=== PATIENT | male | born 1955 | race Caucasian/White ===

== ENCOUNTER → 2022-11-08 | Outpatient (CLI) | payer OTHER | LOC: M WUC 10:43 | PROVIDERS: ATTEND Internal Medicine | DX: R91.8 Other nonspecific abnormal finding of lung field (principal) ==

== ENCOUNTER → 2023-03-07 | Outpatient (REF) | payer OTHER | LOC: M LAB REF 17:38 | PROVIDERS: ATTEND Internal Medicine | DX: N42.9 Disorder of prostate, unspecified (principal) ==

== ENCOUNTER 2023-08-11 10:22 | Emergency (ER) | payer OTHER ==
[~2023-08-11] VITALS: Ht 172.7 cm; Wt 76.6 kg
[2023-08-11 11:03] LABS: BASO % 0.4 % (0.0-1.0); EOS # 0.1 10^3/uL (0.0-0.5); EOS % 0.9 % (0.0-3.0); HEMATOCRIT 46.5 % (42.0-52.0); HEMOGLOBIN 15.6 g/dl (13.5-17.5); LYMPH # 0.9 10^3/uL (1.5-5.0); LYMPH % 11.2 % (24.0-44.0); MEAN CORPUSCULAR HEMOGLOBIN 30.6 pg (27.0-33.0); MEAN CORPUSCULAR HGB CONC 33.5 g/dl (32.0-36.5); MEAN CORPUSCULAR VOLUME 91.2 fl (80.0-96.0); MONO # 0.7 10^3/uL (0.0-0.8); MONO % 8.6 % (2.0-8.0); NEUTROPHILS # 6.3 10^3/uL (1.5-8.5); NEUTROPHILS % 78.5 % (36.0-66.0); PLATELET COUNT, AUTOMATED 208 10^3/uL (150-450)
[2023-08-11 11:15] LABS: INR 0.98; PARTIAL THROMBOPLASTIN TIME 25.5 SECONDS (24.8-34.2); PROTHROMBIN TIME 12.7 SECONDS (12.5-14.5)
[2023-08-11 11:36] LABS: LIPASE 54 U/L (12-53)
[2023-08-11 11:38] LABS: ALBUMIN 3.9 G/DL (3.2-5.2); ALKALINE PHOSPHATASE 56 U/L (46-116); ALT/SGPT 28 U/L (7.0-40); AST/SGOT 45 U/L (<34); BILIRUBIN,DIRECT 0.2 MG/DL (<0.4); BILIRUBIN,TOTAL 1.2 MG/DL (0.3-1.2); BLOOD UREA NITROGEN 26 MG/DL (9-23); CALCIUM LEVEL 9.5 MG/DL (8.3-10.6); CARBON DIOXIDE LEVEL 29 MMOL/L (20-31); CHLORIDE LEVEL 101 MMOL/L (98-107); CK-MB VALUE MASS 15.1 NG/ML (<3.6); CREATININE FOR GFR 1.27 MG/DL (0.70-1.30); GLOMERULAR FILTRATION RATE > 60.0 (>49); GLUCOSE, FASTING 119 MG/DL (74-106); POTASSIUM SERUM 4.3 MMOL/L (3.5-5.1); SODIUM LEVEL 136 MMOL/L (136-145); TOTAL PROTEIN 6.7 G/DL (5.7-8.2)
[2023-08-11 11:39] LABS: THYROID STIMULATING HORMONE 1.526 uIU/ML (0.55-4.78)
[2023-08-11 11:40] LABS: FREE T4 1.03 NG/DL (0.89-1.76)
[2023-08-11] MEDS ORDERED: IBUP200C25 PO (11:41)
[2023-08-11 11:44] LABS: CPK CREATINE PHOSPHOKINASE 318 U/L (46-171); MB/CK RELATIVE INDEX 4.74 (< OR =4)
[2023-08-11] MEDS ORDERED: HOME MED LIST COMPLETE! XX SCH (11:45)
[2023-08-11] MEDS ORDERED: ISOVUE-370 76% 100ML VIAL As Ordered ONE (11:55)
[2023-08-11 12:39] LABS: CK-MB VALUE MASS 15.2 NG/ML (<3.6)
[2023-08-11 12:46] LABS: MB/CK RELATIVE INDEX 4.77 (< OR =4)
[2023-08-11] MEDS ORDERED: HEPARIN DRIP 25,000 UNITS in IV 1 EA IV SCH (12:55)
[2023-08-11] MEDS ORDERED: HEPARIN SOD (PORCINE) 5000UNITS/ML 1ML VIAL/SYRINGE IV PRN ×2 (12:55→13:30)
[2023-08-11] MEDS: HEPARIN SOD (PORCINE) 5000UNITS/ML 1ML VIAL/SYRINGE IV ONE ×2 (13:20→13:30)
[2023-08-11] MEDS: ASPIRIN 81MG CHEW TABLET PO ONE (13:21)
[2023-08-11] MEDS: NS 500 ML IV ONE (13:27)
[2023-08-11] MEDS: HEPARIN DRIP 25,000 UNITS in IV 1 EA IV SCH (13:35)
[2023-08-11 13:42] VITALS: BP 132/93; TEMP 97.3; O2SAT 100
== END 2023-08-11 13:42 | disposition short-term general hospital (02) ==
LOC: M ED 11:20
DX: I21.4 Non-ST elevation (NSTEMI) myocardial infarction (principal); E78.5 Hyperlipidemia, unspecified; Z82.49 Family history of ischemic heart disease and other diseases of the circulatory system; I71.21 Aneurysm of the ascending aorta, without rupture; Z88.0 Allergy status to penicillin
CPT/HCPCS: 71045; 71275; 80048; 80076; 82550; 82553; 83690; 83880; 84439; 84443; 84484; 85025; 85610; 85730; 93005; 93041; 94760; 96374; 99285; Q9967

== ENCOUNTER → 2023-09-08 | Outpatient (REF) | payer OTHER ==
[~2023-09-08] MED LIST: IBUP200C25 PO
== END ==
LOC: M LABWUC 12:51
PROVIDERS: ATTEND Nurse Practitioner Adult Health
DX: N42.9 Disorder of prostate, unspecified (principal)

== ENCOUNTER → 2023-10-13 | Outpatient (CLI) | payer OTHER ==
[2023-10-13 14:39] LABS: ALKALINE PHOSPHATASE 52 U/L (46-116); ALT/SGPT 33 U/L (7.0-40); AST/SGOT 27 U/L (<34); BLOOD UREA NITROGEN 22 MG/DL (9-23); CALCIUM LEVEL 9.5 MG/DL (8.3-10.6); CARBON DIOXIDE LEVEL 30 MMOL/L (20-31); CHLORIDE LEVEL 107 MMOL/L (98-107); CHOLESTEROL LEVEL 156 MG/DL (<200); CREATININE FOR GFR 1.21 MG/DL (0.70-1.30); GLOMERULAR FILTRATION RATE > 60.0 (>49); GLUCOSE, FASTING 99 MG/DL (74-106); LDL CHOLESTEROL 86.4 MG/DL (<100); POTASSIUM SERUM 4.9 MMOL/L (3.5-5.1); SODIUM LEVEL 141 MMOL/L (136-145); TOTAL PROTEIN 6.4 G/DL (5.7-8.2); TRIGLYCERIDES LEVEL 88 MG/DL (<150)
== END ==
LOC: M WUC 09:23
PROVIDERS: ATTEND Internal Medicine Cardiovascular Disease
DX: E78.5 Hyperlipidemia, unspecified (principal); I51.81 Takotsubo syndrome

== ENCOUNTER → 2023-11-24 | Outpatient (CLI) | payer OTHER | LOC: M WUC 09:49 | PROVIDERS: ATTEND Internal Medicine | DX: M79.642 Pain in left hand (principal); M79.10 Myalgia, unspecified site; M25.571 Pain in right ankle and joints of right foot ==

== ENCOUNTER → 2024-03-10 | Outpatient (CLI) | payer OTHER | LOC: M WUC 10:43 | PROVIDERS: ATTEND Nurse Practitioner Adult Health | DX: R97.20 Elevated prostate specific antigen [PSA] (principal) ==

== ENCOUNTER → 2024-09-06 | Outpatient (REF) | payer OTHER | LOC: M LABWUC 12:02 | PROVIDERS: ATTEND Nurse Practitioner Adult Health | DX: N40.1 Benign prostatic hyperplasia with lower urinary tract symptoms (principal) ==

== ENCOUNTER → 2025-03-10 | Outpatient (CLI) | payer OTHER | LOC: M WUC 11:44 | PROVIDERS: ATTEND Nurse Practitioner Adult Health | DX: N42.9 Disorder of prostate, unspecified (principal) ==